=== PATIENT | female | born 1935 | race Caucasian/White ===

== ENCOUNTER → 2017-04-13 | Outpatient (CLI) | payer MEDICARE ==
[~2017-04-13] MED LIST: ACET500C PO; CALC1CAP8 PO; VITA-110 PO
[2017-04-13 19:10] LABS: MEAN CORPUSCULAR HEMOGLOBIN 31.1 pg (27.0-33.0); MEAN CORPUSCULAR HGB CONC 32.5 g/dl (32.0-36.5); MEAN CORPUSCULAR VOLUME 95.7 fl (80.0-96.0); RED CELL DISTRIBUTION WIDTH 12.9 % (11.5-14.5); WHITE BLOOD COUNT 9.8 K/mm3 (4.0-10.0)
[2017-04-13 19:23] LABS: ALBUMIN 3.7 GM/DL (3.2-5.2); ALBUMIN/GLOBULIN RATIO 1.28 (1.00-1.93); ALKALINE PHOSPHATASE 63 U/L (45-117); ALT/SGPT 15 U/L (12-78); ANION GAP 9 MEQ/L (8-16); AST/SGOT 15 U/L (15-37); BILIRUBIN,TOTAL 0.3 MG/DL (0.2-1.0); BLOOD UREA NITROGEN 20 MG/DL (7-18); CALCIUM LEVEL 9.1 MG/DL (8.8-10.2); CARBON DIOXIDE LEVEL 25 MEQ/L (21-32); CHLORIDE LEVEL 109 MEQ/L (98-107); CREATININE FOR GFR 0.71 MG/DL (0.55-1.02); GLOMERULAR FILTRATION RATE > 60.0 (>32); GLUCOSE, FASTING 81 MG/DL (83-110); POTASSIUM SERUM 4.5 MEQ/L (3.5-5.1); SODIUM LEVEL 143 MEQ/L (136-145); TOTAL PROTEIN 6.6 GM/DL (6.4-8.2)
== END ==
LOC: M WUC 15:59
PROVIDERS: ATTEND Internal Medicine
DX: M81.0 Age-related osteoporosis without current pathological fracture (principal); R63.6 Underweight

== ENCOUNTER → 2018-10-23 | Outpatient (CLI) | payer MEDICARE ==
--- NOTE | 2018-10-23 16:34 | REPMRS ---
Patient History The patient states she has not had a clinical breast exam in over a year. Patient is postmenopausal and had first child at age 33. No known family history of cancer. Benign excisional biopsy of the left breast, 1959. Digital Woman Screen Mammo: October 23, 2018 - Exam #: [id number] Bilateral CC and MLO view(s) were taken. Technologist: Eliana Curtis, Technologist Prior study comparison: 2016, bilateral digital mammo screening bilat, performed at [facility]. FINDINGS: The breast tissue is extremely dense which could obscure a lesion on mammography. There has been no change in the appearance of the mammogram from the prior studies. There is a moderate amount of residual fibroglandular tissue which is fairly symmetric. There is no interval development of dominant mass, architectural distortion, or clustered microcalcification typical of malignancy. There are scattered, small, benign calcifications of doubtful clinical significance. There are bilateral benign arterial calcifications noted. 3-D tomosynthesis shows no additional findings. The patient's Tyrer-Cuzick lifetime risk assessment score is 0.9 %. No significant changes when compared with prior studies. Assessment: BI-RADS/ACR category 2 mammogram. Benign Findings. Recommendation Routine screening mammogram in 1 year (for women over age 40). This mammogram was interpreted with the aid of an FDA-approved computer-aided dectection system. A. Negative x-ray reports should not delay biopsy if a dominant or clinically suspicious mass is present. B. Four to eight percent of cancers are not identified by mammography. C. Adenosis and dense breast may obscure an underlying neoplasm. Electronically Signed By: Александр Santamaria MD 10/23/18 [id number]
== END ==
LOC: M WHC 12:44
PROVIDERS: ATTEND Internal Medicine
DX: Z12.31 Encounter for screening mammogram for malignant neoplasm of breast (principal); Z78.0 Asymptomatic menopausal state; Z86.018 Personal history of other benign neoplasm; R92.1 Mammographic calcification found on diagnostic imaging of breast; J84.10 Pulmonary fibrosis, unspecified; R91.8 Other nonspecific abnormal finding of lung field; Z72.0 Tobacco use

== ENCOUNTER → 2018-10-23 | Outpatient (CLI) | payer MEDICARE ==
--- NOTE | 2018-10-23 12:21 | REP ---
Chest two views HISTORY: Tobacco use Comparison: 12/29/2013 The lungs are hyperinflated. An increase in interstitial markings is present in the lungs consistent with chronic interstitial fibrosis. Patchy density is present in the right lower lobe consistent with atelectasis or infiltrate. The heart is normal in size. The pulmonary vasculature is normal in appearance. The bony structure is intact. IMPRESSION: 1. Chronic interstitial fibrosis. 2. Right lower lobe atelectasis or infiltrate. Electronically Signed by José Miguel Abdalla MD 10/23/2018 12:12 P
== END ==
LOC: M WUC 11:31
PROVIDERS: ATTEND Internal Medicine
DX: J84.10 Pulmonary fibrosis, unspecified (principal); R91.8 Other nonspecific abnormal finding of lung field; Z72.0 Tobacco use

== ENCOUNTER → 2018-10-29 | Outpatient (REF) | payer MEDICARE ==
[2018-10-29 17:35] LABS: HEMATOCRIT 38.4 % (36.0-47.0); HEMOGLOBIN 12.1 g/dl (12.0-15.5); MEAN CORPUSCULAR HEMOGLOBIN 29.9 pg (27.0-33.0); MEAN CORPUSCULAR HGB CONC 31.5 g/dl (32.0-36.5); MEAN CORPUSCULAR VOLUME 94.8 fl (80.0-96.0); PLATELET COUNT, AUTOMATED 295 10^3/uL (150-450); RED BLOOD COUNT 4.05 10^6/uL (4.00-5.40)
[2018-10-29 17:45] LABS: ALBUMIN 3.7 GM/DL (3.2-5.2); ALT/SGPT 14 U/L (12-78); BILIRUBIN,TOTAL 0.4 MG/DL (0.2-1.0); BLOOD UREA NITROGEN 19 MG/DL (7-18); CALCIUM LEVEL 9.1 MG/DL (8.8-10.2); CARBON DIOXIDE LEVEL 27 MEQ/L (21-32); CHLORIDE LEVEL 108 MEQ/L (98-107); CHOLESTEROL LEVEL 179 MG/DL (<200); CHOLESTEROL RISK RATIO 3.729 (<5); CREATININE FOR GFR 0.75 MG/DL (0.55-1.30); GLOMERULAR FILTRATION RATE > 60.0 (>32); GLUCOSE, FASTING 83 MG/DL (70-100); HDL CHOLESTEROL 48 MG/DL (>40); LDL CHOLESTEROL 111 MG/DL (<100); NON-HDL-C 131 MG/DL; POTASSIUM SERUM 4.3 MEQ/L (3.5-5.1); SODIUM LEVEL 142 MEQ/L (136-145); TOTAL PROTEIN 6.5 GM/DL (6.4-8.2); TRIGLYCERIDES LEVEL 100 MG/DL (<150)
[2018-10-29 17:46] LABS: TOTAL 25(OH) VITAMIN D 11.3 NG/ML (30.0-100.0)
== END ==
LOC: M SFHCPLAZ 10:42
PROVIDERS: ATTEND Internal Medicine
DX: R63.6 Underweight (principal); M81.0 Age-related osteoporosis without current pathological fracture

== ENCOUNTER → 2019-10-16 | Outpatient (CLI) | payer MEDICARE ==
[2019-10-16 15:06] LABS: HEMOGLOBIN 12.8 g/dl (12.0-15.5); MEAN CORPUSCULAR HEMOGLOBIN 30.6 pg (27.0-33.0); MEAN CORPUSCULAR HGB CONC 31.2 g/dl (32.0-36.5); MEAN CORPUSCULAR VOLUME 98.1 fl (80.0-96.0); PLATELET COUNT, AUTOMATED 301 10^3/uL (150-450); RED BLOOD COUNT 4.18 10^6/uL (4.00-5.40); WHITE BLOOD COUNT 9.5 10^3/uL (4.0-10.0)
[2019-10-16 15:38] LABS: ALBUMIN 3.8 GM/DL (3.2-5.2); ALT/SGPT 13 U/L (12-78); BILIRUBIN,TOTAL 0.3 MG/DL (0.2-1.0); BLOOD UREA NITROGEN 17 MG/DL (7-18); CALCIUM LEVEL 9.2 MG/DL (8.8-10.2); CARBON DIOXIDE LEVEL 31 MEQ/L (21-32); CHLORIDE LEVEL 104 MEQ/L (98-107); CREATININE FOR GFR 0.69 MG/DL (0.55-1.30); GLOMERULAR FILTRATION RATE > 60.0 (>32); GLUCOSE, FASTING 79 MG/DL (70-100); POTASSIUM SERUM 4.7 MEQ/L (3.5-5.1); SODIUM LEVEL 140 MEQ/L (136-145); TOTAL PROTEIN 6.9 GM/DL (6.4-8.2)
== END ==
LOC: M PLALAB 11:56
PROVIDERS: ATTEND Internal Medicine
DX: R63.6 Underweight (principal); Z72.0 Tobacco use; Z79.899 Other long term (current) drug therapy
CPT/HCPCS: 36415; 80053; 84443; 85027; G0463

== ENCOUNTER → 2020-10-12 | Outpatient (REF) | payer MEDICARE ==
[2020-10-12 15:29] LABS: HEMATOCRIT 41.7 % (36.0-47.0); HEMOGLOBIN 12.8 g/dl (12.0-15.5); MEAN CORPUSCULAR HEMOGLOBIN 30.3 pg (27.0-33.0); MEAN CORPUSCULAR HGB CONC 30.7 g/dl (32.0-36.5); MEAN CORPUSCULAR VOLUME 98.8 fl (80.0-96.0); PLATELET COUNT, AUTOMATED 316 10^3/uL (150-450); RED BLOOD COUNT 4.22 10^6/uL (4.00-5.40)
[2020-10-12 16:01] LABS: ALT/SGPT 13 U/L (12-78); BILIRUBIN,TOTAL 0.4 MG/DL (0.2-1.0); BLOOD UREA NITROGEN 22 MG/DL (7-18); CALCIUM LEVEL 9.6 MG/DL (8.8-10.2); CARBON DIOXIDE LEVEL 31 MEQ/L (21-32); CHLORIDE LEVEL 105 MEQ/L (98-107); GLOMERULAR FILTRATION RATE > 60.0 (>32); GLUCOSE, FASTING 75 MG/DL (70-100); POTASSIUM SERUM 4.7 MEQ/L (3.5-5.1); SODIUM LEVEL 142 MEQ/L (136-145); TOTAL PROTEIN 7.2 GM/DL (6.4-8.2)
[2020-10-12 16:37] LABS: TOTAL 25(OH) VITAMIN D 21.5 NG/ML (30.0-100.0)
== END ==
LOC: M PLALAB 11:41
PROVIDERS: ATTEND Internal Medicine
DX: M81.0 Age-related osteoporosis without current pathological fracture (principal)

== ENCOUNTER 2021-06-30 16:31 | Observation (INO) | payer MEDICARE ==
[~2021-06-30] VITALS: Ht 157.5 cm; Wt 35.4 kg
--- OUTSIDE RECORDS SUMMARY | 2021-06-30 16:36 | CCD ---
Author Author [facility] Organization [facility] Address Unknown Phone Unavailable Support Name Relationship Address Phone RETIRED Next Of Kin Unknown RE Next Of Kin Unknown Unavailable SUZI [place] [address] Su[address] [facility] [address] [id number] [phone] Re-disclosure Warning The records that you are about to access may contain information from federally-assisted alcohol or drug abuse programs. If such information is present, then the following federally mandated warning applies: This information has been disclosed to you from records protected by federal confidentiality rules (42 CFR part 2). The federal rules prohibit you from making any further disclosure of this information unless further disclosure is expressly permitted by the written consent of the person to whom it pertains or as otherwise permitted by 42 CFR part 2. A general authorization for the release of medical or other information is NOT sufficient for this purpose. The Federal rules restrict any use of the information to criminally investigate or prosecute any alcohol or drug abuse patient.The records that you are about to access may contain highly sensitive health information, the redisclosure of which is protected by Article 27-F of the [facility] Public Health law. If you continue you may have access to information: Regarding HIV / AIDS; Provided by facilities licensed or operated by the [facility] Office of Mental Health; or Provided by the [facility] Office for People With Developmental Disabilities. If such information is present, then the following [facility] mandated warning applies: This information has been disclosed to you from confidential records which are protected by state law. State law prohibits you from making any further disclosure of this information without the specific written consent of the person to whom it pertains, or as otherwise permitted by law. Any unauthorized further disclosure in violation of state law may result in a fine or intermediate sentence or both. A general authorization for the release of medical or other information is NOT sufficient authorization for further disc losure. Encounters Encounter Providers Location Date Indications Data Source(s ) Out[place] [address] [facility] [address] 10/13/2020 12:00:00 AM EST eCW1 ([facility]) Immunizations Vaccine Date Status Description Data Source(s) COVID-19 VACCINE Pfizer 10/26/2020 12:00:00 AM EST completed NYSIIS Vaccine Series Complete: YESThis Data wa s Submitted to [facility] Via [employer]. COVID-19 dose #1 (given elsewhere) Unspecified 10/05/2020 02 :05:00 PM EST completed eCW1 ([facility]) COVID-19 VACCINE Pfizer 10/05/2020 12:00:00 AM EST completed NYSIIS Vaccine Series Complete: NOThis Data was Submitted to [facility] Via [employer]. IIV3. This is one of two codes replacing CVX 15, which is being retired. 06/05/2020 10:18:00 AM EDT completed eCW1 ([facility]) Medications No Information Insurance Providers Payer name Policy type / Coverage type Policy ID Covered libertarian ID Covered libertarian's relationship to bustos Policy Bustos Plan Information MEDICARE [id number] SP [id number] A [facility] HE[facility] C[facility] OPTIONS [id number] SP [id number] ANS-Medicare Part B [id number] ANSI-Commercial [id number] ANSI-Medicare Part B [id number] ANSI-Commercial [id number] ANSI-Commercial [id number] ANSI-Medicare Part B [id number] MEDICARE [id number] SP [id number] A MEDICARE C [id number] S [id number] A AARP O [id number] S [id number] 311 [employer]ARP HE[employer] CARE OPTIONS [id number] SP [id number] [employer] [place] [id number] SP [id number] MEDICARE COMPLETE-UHC P UNAVAILABLE [id number] S UNAVAILABLE MEDICARE - [place] MCR [id number] S [id number] MEDICARE [id number] SP [id number] A Problems, Conditions, and Diagnoses No Information Surgeries/Procedures No Information Results No Information Social History Code Duration Value Status Description Data Source(s ) Smoking 10/13/2020 12:00:00 AM EST Current Smoker completed Curre nt Smoker eCW1 ([facility]) Vital Signs ID Date Data Source UNK Name Value Range Interpretation Code Description Data Source(s) Body weight 79.6 [lb_av] 79.6 [lb_av] eCW1 ([facility]) Body height 62 [in_i] 62 [in_i] eCW1 ([facility]) Body mass index (BMI) [Ratio] 14.56 kg/m2 14.56 kg/m2 eCW1 ([facility]) Heart rate 100 /min 100 /min eCW1 ([facility]) Respiratory rate 18 /min 18 /min eCW1 ([facility]) Body temperature 97.9 [degF] 97.9 [degF] eCW1 ( [facility]) Systolic blood pressure 122 mm[Hg] 122 mm[Hg] e CW1 ([facility]) Diastolic blood pressure 58 mm[Hg] 58 mm[Hg] eCW1 ([facility])
[2021-06-30 17:29] LABS: BASO % 0.3 % (0.0-1.0); EOS % 0.5 % (0.0-3.0); HEMOGLOBIN 11.5 g/dl (12.0-15.5); LYMPH # 0.6 10^3/uL (1.5-5.0); LYMPH % 8.1 % (24.0-44.0); MEAN CORPUSCULAR HEMOGLOBIN 30.4 pg (27.0-33.0); MEAN CORPUSCULAR HGB CONC 31.1 g/dl (32.0-36.5); MEAN CORPUSCULAR VOLUME 97.9 fl (80.0-96.0); MONO # 0.5 10^3/uL (0.0-0.8); MONO % 6.6 % (2.0-8.0); NEUTROPHILS # 6.2 10^3/uL (1.5-8.5); NEUTROPHILS % 83.8 % (36.0-66.0); PLATELET COUNT, AUTOMATED 238 10^3/uL (150-450); RED BLOOD COUNT 3.78 10^6/uL (4.00-5.40); WHITE BLOOD COUNT 7.4 10^3/uL (4.0-10.0)
[2021-06-30] MEDS ORDERED: NS 500 ML IV ONE (17:55)
--- OUTSIDE RECORDS SUMMARY | 2021-06-30 18:19 | CCD ---
Author Author [facility] Organization [facility] Address Unknown Phone Unavailable Support Name Relationship Address Phone RETIRED Next Of Kin Unknown RE Next Of Kin Unknown Unavailable [place] [address] Suzi Carter [facility] [address] [id number] [phone] Re-disclosure Warning The records that you are [...] is protected by Article 27-F of the [facility] Public Health law. If you continue you may have access to information: Regarding HIV / AIDS; Provided by facilities licensed or operated by the [facility] Office of Mental Health; or Provided by the [facility] Office for People With Developmental Disabilities. If such information is present, then the following [facility] mandated warning applies: This information has been [...] law may result in a fine or long term sentence or both. A general authorization for the release of medical or other information is NOT sufficient authorization for further disc losure. Encounters Encounter Providers Location Date Indications Data Source(s ) Out[place] [address] [facility] [address] 10/13/2020 12:00:00 AM EST eCW1 ([facility]) Immunizations Vaccine Date Status Description Data Source(s) COVID-19 VACCINE Pfizer 10/26/2020 12:00:00 AM EST completed NYSIIS Vaccine Series Complete: YESThis Data wa s Submitted to [facility] Via [employer]. COVID-19 dose #1 (given elsewhere) Unspecified 10/05/2020 02 :05:00 PM EST completed eCW1 ([facility]) COVID-19 VACCINE Pfizer 10/05/2020 12:00:00 AM EST completed NYSIIS Vaccine Series Complete: NOThis Data was Submitted to [facility] Via [employer]. IIV3. This is one of two codes replacing CVX 15, which is being retired. 06/05/2020 10:18:00 AM EDT completed eCW1 ([facility]) Medications No Information Insurance Providers Payer name Policy type / Coverage type Policy ID Covered libertarian ID Covered libertarian's relationship to bustos Policy Bustos Plan Information MEDICARE [id number] SP [id number] A [facility] HEALTH CARE OPTIONS [id number] SP [id number] ANS-Medicare Part B [id number] ANSI-Commercial [id number] ANSI-Medicare Part B [id number] ANSI-Commercial [id number] ANSI-Commercial [id number] ANSI-Medicare Part B [id number] MEDICARE [id number] SP [id number] A MEDICARE C [id number] S [id number] A AARP O [id number] S [id number] 311 AARP HE[employer] CARE OPTIONS [id number] SP [id number] [employer] [place] [id number] SP [id number] MEDICARE COMPLETE-UHC P UNAVAILABLE [id number] S UNAVAILABLE MEDICARE - [place] MCR [id number] S [id number] MEDICARE [id number] SP [id number] A Problems, Conditions, and Diagnoses No Information Surgeries/Procedures No Information Results No Information Social History Code Duration Value Status Description Data Source(s ) Smoking 10/13/2020 12:00:00 AM EST Current Smoker completed Curre nt Smoker eCW1 ([facility]) Vital Signs ID Date Data Source UNK Name Value Range Interpretation Code Description Data Source(s) Body weight 79.6 [lb_av] 79.6 [lb_av] eCW1 ([facility]) Body height 62 [in_i] 62 [in_i] eCW1 ([facility]) Body mass index (BMI) [Ratio] 14.56 kg/m2 14.56 kg/m2 eCW1 ([facility]) Heart rate 100 /min 100 /min eCW1 ([facility]) Respiratory rate 18 /min 18 /min eCW1 ([facility]) Body temperature 97.9 [degF] 97.9 [degF] eCW1 ( [facility]) Systolic blood pressure 122 mm[Hg] 122 mm[Hg] e CW1 ([facility]) Diastolic blood pressure 58 mm[Hg] 58 mm[Hg] eCW1 ([facility])
[2021-06-30 18:20] LABS: BLOOD UREA NITROGEN 23 MG/DL (7-18); CALCIUM LEVEL 8.6 MG/DL (8.8-10.2); CARBON DIOXIDE LEVEL 24 MEQ/L (21-32); CHLORIDE LEVEL 114 MEQ/L (98-107); CK-MB VALUE MASS 1.5 NG/ML (<3.6); CPK CREATINE PHOSPHOKINASE 33 U/L (26-192); CREATININE FOR GFR 1.01 MG/DL (0.55-1.30); FREE T4 1.01 NG/DL (0.76-1.46); GLOMERULAR FILTRATION RATE 55.3 (>32); GLUCOSE, FASTING 121 MG/DL (70-100); MAGNESIUM LEVEL 1.9 MG/DL (1.8-2.4); MB/CK RELATIVE INDEX 4.55 (< OR =4); POTASSIUM SERUM 4.2 MEQ/L (3.5-5.1); SODIUM LEVEL 142 MEQ/L (136-145); TROPONIN I < 0.02 NG/ML (< 0.10)
[2021-06-30] MEDS ORDERED: HOME MED LIST COMPLETE! XX SCH (18:55)
[2021-06-30 19:06] LABS: RSV AMPLIFICATION POSITIVE (NEGATIVE)
--- NOTE | 2021-06-30 19:06 | REP ---
INDICATION: syncope. COMPARISON: 11/15/2018. TECHNIQUE: Single portable AP view of the chest was performed. FINDINGS: Diffuse fibrotic changes are stable. There is a possible 2 cm nodule medially in the left lung base. No definite superimposed acute infiltrate is seen. There is mild biapical pleural thickening which is unchanged. The heart is not enlarged. There is some calcification of the thoracic aorta. The mediastinal silhouette is unchanged. IMPRESSION: No acute infiltrate. Chronic fibrosis. Possible 2 cm nodule medial left lung base. <Electronically signed by Catarino Stevens > 06/30/21 [id number]
--- OUTSIDE RECORDS SUMMARY | 2021-06-30 19:55 | CCD ---
Author Author [facility] Organization [facility] Address Unknown Phone Unavailable Support Name Relationship Address Phone DESTINEY PAUL Next Of Kin - -, - - RETIRED Next Of Kin Unknown RE Next Of Kin Unknown Unavailable SUZI CARTER Next Of Kin [address] [place] [id number] Suzi Carter [id number] [id number] [phone] Re-disclosure Warning The records that you are [...] is protected by Article 27-F of the [facility] Public Health law. If you continue you may have access to information: Regarding HIV / AIDS; Provided by facilities licensed or operated by the [facility] Office of Mental Health; or Provided by the [facility] Office for People With Developmental Disabilities. If such information is present, then the following [facility] mandated warning applies: This information has been [...] law may result in a fine or half-way sentence or both. A general authorization for the release of medical or other information is NOT sufficient authorization for further disc losure. Encounters Encounter Providers Location Date Indications Data Source(s ) Out[place] [address] [facility] [address] 10/13/2020 12:00:00 AM EST eCW1 ([facility]) Immunizations Vaccine Date Status Description Data Source(s) COVID-19 VACCINE Pfizer 10/26/2020 12:00:00 AM EST completed NYSIIS Vaccine Series Complete: YESThis Data wa s Submitted to [facility] Via [employer]. COVID-19 dose #1 (given elsewhere) Unspecified 10/05/2020 02 :05:00 PM EST completed eCW1 ([facility]) COVID-19 VACCINE Pfizer 10/05/2020 12:00:00 AM EST completed NYSIIS Vaccine Series Complete: NOThis Data was Submitted to [facility] Via [employer]. IIV3. This is one of two codes replacing CVX 15, which is being retired. 06/05/2020 10:18:00 AM EDT completed eCW1 ([facility]) Medications No Information Insurance Providers Payer name Policy type / Coverage type Policy ID Covered republican ID Covered republican's relationship to bustos Policy Bustos Plan Information MEDICARE [id number] SP [id number] A [facility] C[facility] OPTIONS [id number] SP [id number] ANSI-Medicare Part B [id number] ANSI-Commercial [id number] ANSI-Medicare Part B [id number] ANSI-Commercial [id number] ANSI-Commercial [id number] ANS-Medicare Part B [id number] MEDICARE [id number] SP [id number] A MEDICARE C [id number] S [id number] A AARP O [id number] S [id number] 311 AARP HE[employer] CARE OPTIONS [id number] SP [id number] [facility] [id number] SP [id number] MEDICARE COMPLETE-UHC P UNAVAILABLE [id number] S UNAVAILABLE MEDICARE - [place] MCR [id number] S [id number] MEDICARE [id number] SP [id number] A Problems, Conditions, and Diagnoses No Information Surgeries/Procedures No Information Results No Information Social History Code Duration Value Status Description Data Source(s ) Smoking 10/13/2020 12:00:00 AM EST Current Smoker completed Curre nt Smoker eCW1 ([facility]) Vital Signs ID Date Data Source UNK Name Value Range Interpretation Code Description Data Source(s) Body weight 79.6 [lb_av] 79.6 [lb_av] eCW1 ([facility]) Body height 62 [in_i] 62 [in_i] eCW1 ([facility]) Body mass index (BMI) [Ratio] 14.56 kg/m2 14.56 kg/m2 eCW1 ([facility]) Heart rate 100 /min 100 /min eCW1 ([facility]) Respiratory rate 18 /min 18 /min eCW1 [facility] Body temperature 97.9 [degF] 97.9 [degF] eCW1 ( [facility]) Systolic blood pressure 122 mm[Hg] 122 mm[Hg] e CW1 ([facility]) Diastolic blood pressure 58 mm[Hg] 58 mm[Hg] eCW1 ([facility])
--- NOTE | 2021-06-30 20:11 | REPVR ---
PROCEDURE INFORMATION: Exam: CT Head Without Contrast Exam date and time: 06/30/2021 8:03 PM Age: 85 years old Clinical indication: Syncope and collapse; Additional info: Syncope w high blood pressure R/O CVA TECHNIQUE: Imaging protocol: Computed tomography of the head without contrast. Radiation optimization: All CT scans at this facility use at least one of these dose optimization techniques: automated exposure control; mA and/or kV adjustment per patient size (includes targeted exams where dose is matched to clinical indication); or iterative reconstruction. Other technique: STROKE PROTOCOL was implemented. COMPARISON: No relevant prior studies available. FINDINGS: Brain: No intracranial mass, mass effect or midline shift. No acute intracranial hemorrhage. No CT evidence of acute cortical infarct. Mild decreased attenuation in periventricular/centrum semiovale white matter. Ventricles, cisterns, and sulci are normal in size for age. Cavum septi pellucidi et vergae incidental anatomic variant is present. Paranasal sinuses: Imaged paranasal sinuses are normally aerated. Mastoid air cells: Mastoid air cells and middle ear structures are normally aerated. Orbital cavity: Imaged orbits are unremarkable. Bones/joints: No calvarial fracture or destructive process. Soft tissues: No focal extracranial soft tissue swelling. IMPRESSION: No acute or concerning focal intracranial abnormality. ASSESSMENT: ASPECTS ([place] Stroke Program Early CT Score) is 10. Electronically signed by: Leonel Pleitez On 06/30/2021 20:10:53 PM
[2021-06-30] MEDS ORDERED: MAALOX 30 ML SUSP *UDC PO PRN (20:45)
[2021-06-30] MEDS ORDERED: ACETAMINOPHEN TAB 650MG DOSE (2X325MG) PO PRN (20:45)
[2021-06-30] MEDS ORDERED: MOM 30ML SUSPENSION UDC PO PRN (20:45)
--- NOTE | 2021-06-30 20:45 | HPEPDOC ---
General Date of Admission Jun 30, 2021 at 16:32 Date of Service: Jun 30, 2021 Attending Physician: CATE KING MD Chief Complaint Syncope. History of Present Illness History of present illness: Mrs. Vega is an 85 year old female who presented to the emergency department after a syncopal episode yesterday morning while shopping at [employer] with her daughter Nasra. She states that she started to feel very tired while walking around the store and told her daughter that she did not feel well. She remembers feeling dizzy soon after and attempted to lean against a nearby wall. The next thing she remembers is waking up on the floor with a group of people around her. She is unsure of exactly how long she had lost consciousness but does believe it was less than 5 minutes in duration. She denies tongue biting or loss of bowel/bladder. She denies anyone tell her that a ppeared to be "seizing". She had a similar episode like this 10 years prior that was due to dehydration. She had soup, half a sandwich, and a few sips of coffee that morning. She usually has a glass of orange juice and toast with jam for breakfast. In the ED she was given a 500cc bolus and found to have RSV. Review of systems: General: denies fevers, chills, night sweats. admits to being thin and not eating much for most of her adult life HEENT: denies changes in vision or hearing, difficulty swallowing, or swollen glands Cardiovascular: denies chest pain or palpitations Pulmonary: denies shortness of breath, pain with inspiration, cough, or wheezing Abdomen: denies nausea, vomiting, diarrhea, blood in stool or urine. Extremities: denies swelling, cyanosis, new muscle weakness Past medical / surgical history: Vasovagal syncope Underweight Osteoporosis Hysterectomy Appendectomy Tonsillectomy Bilateral cataract surgery Social history: Patient smokes 3 cigarettes per day, smoking since age 29 Patient denies ETOH or illicit drug use. Patient lives alone in [place] Family history: reviewed and noncontributory Allergies: Penicillin-hives / Sulfa drugs-hives Physical examination: General: A frail elderly female sitting in bed in no acute distress. She converses well and is oriented to her surroundings HEENT: PERRLA, EOMI, mucous membranes appear mildly dry, no lymphadenopathy. Hearing aids noted bilaterally Cardiovascular: regular rate of 78 with occasional premature atrial contractions, heart sounds are distant and no audible murmur is appreciated Pulmonary: equal air intake bilaterally, no rhonchi or wheezes noted. Faint crackles heard in lung bases. Abdomen: soft, scaphoid, nontender to palpation, positive bowel sounds Extremities: no edema or cyanosis noted. Pulses are 2+ throughout, capillary refill<2 seconds Neurology: CN 2-12 are intact. Strength is 4/5 throughout, patient has full sensation. Psych: alert and oriented x 4 Imaging: Chest x ray: 06/30/21: IMPRESSION: No acute infiltrate. Chronic fibrosis. Possible 2 cm nodule medial left lung base. Head CT: 06/30/21: IMPRESSION: No acute or concerning focal intracranial abnormality. Assessment: Mrs. Vega is an 85 year old female with past medical history of vasovagal syncope, low BMI (14), osteoporosis and tobacco use disorder who presented to the emergency department after a syncopal episode yesterday morning while shopping at [employer]. She tested positive for RSV and was admitted for workup of syncope. Plan: Syncopal episode -yesterday morning while walking around [employer] -patient has history of vasovagal syncope -Orthostatic vitals were negative -BUN 23, patient given 500ml bolus in ED. Started on maintenance fluids 80ml/hr x 1 bag -unable to appreciate a murmur on PE, last echocardiogram 2013 -Blood glucose 121 -RBR 3.7, Hgb 11.5 -Iron panel, Magnesium, B12, folate, TSH, T4 levels pending -head CT negative Respiratory syncytial virus -afebrile -tested positive in ED -started 1 bag NS rate of 80ml/hr for supportive care -patient is not symptomatic -continue supportive treatment Underweight -BMI 14.3 -patient states she has always weighed less than 100lbs even in her youth. Osteoporosis -last DEXA 2014 Tobacco use disorder -patient smokes 3 cigarettes per day -ordered smoking cessation counseling -Chest x-ray: Possible 2 cm nodule seen on medial left lung base. Patient will need outpatient follow up. Severe Malnutrition / Sarcopenia BMI 14.3 DVT prophylaxis: -continue heparin Disposition: home after at least 2 midnight's stay Home Medications Scheduled Cholecalciferol (Vitamin D) 400 Unit Cap, 1 CAP PO DAILY, (Reported) Allergies Coded Allergies: Penicillins (Unverified Allergy, Unknown, 06/30/21) Sulfa (Sulfonamide Antibiotics) (Unverified Allergy, Unknown, 06/30/21) A-FIB/CHADSVASC A-FIB History Current/History of A-Fib/PAF?: No Current PO Anticoag Therapy: No Vital Signs Vital Signs Date Time Temp Pulse Resp B/P (MAP) Pulse Ox O2 Delivery O2 Flow Rate FiO2 06/30/21 18:30 79 179/76 (110) 96 Room Air 06/30/21 16:53 98.0 16 Laboratory Data Labs 24H Laboratory Tests 2 06/30/21 16:50: Anion Gap 4L, Glomerular Filtration Rate 55.3, Calcium Level 8.6L, Magnesium Level 1.9, Total Creatine Kinase 33, Creatine Kinase MB 1.5, Creatine Kinase MB Relative Index 4.55H, Troponin I < 0.02, Thyroid Stimulating Hormone (TSH) 1.190, Free Thyroxine 1.01 06/30/21 16:51: Immature Granulocyte % (Auto) 0.7, Neutrophils (%) (Auto) 83.8H, Lymphocytes (%) (Auto) 8.1L, Monocytes (%) (Auto) 6.6, Eosinophils (%) (Auto) 0.5, Basophils (%) (Auto) 0.3, Neutrophils # (Auto) 6.2, Lymphocytes # (Auto) 0.6L, Monocytes # (Auto) 0.5, Eosinophils # (Auto) 0.0, Basophils # (Auto) 0.0, Nucleated Red Blood Cells % (auto) 0.0 06/30/21 17:44: Coronavirus (COVID-19)(PCR) NEGATIVE, Influenza Type A (RT-PCR) NEGATIVE, Influenza Type B (RT-PCR) NEGATIVE, Respiratory Syncytial Virus (PCR) POSITIVE CBC/BMP Laboratory Tests 06/30/21 16:50 06/30/21 16:51 Plan / VTE VTE Prophylaxis Ordered?: Yes Attending Note Attending Note Time of service 905pm is an 85 yr old F w a hx of diverticulitis, osteoporosis and remote hx of syncope 2/2 dehydration who had a syncopal episode today while shopping. She denies having any overt prodromal symptoms, denies eating less than usual, and denies having n/v/d. Her PE was remarkable for a slim build. She will be admitted for: #Syncope possibly due to TIA i/s/o accelerated HTN #HTN Urgency #Sarcopenia #Macrocytic anemia Rest per H&P VEL SANCHEZ DO Jun 30, 2021 20:45 CATE KING MD Jun 30, 2021 23:23
[2021-06-30] MEDS ORDERED: amLODIPine 5 MG TAB PO SCH (21:00)
[2021-06-30] MEDS: DOCUSATE SODIUM 100MG CAPSULE PO SCH ×2 (21:35→21:40)
[2021-06-30] MEDS: HEPARIN SOD (PORCINE) 5000UNITS/ML 1ML VIAL/SYRINGE SC SCH (21:37)
[2021-06-30 21:48] LABS: HEMATOCRIT 35.9 % (36.0-47.0); HEMOGLOBIN 11.3 g/dl (12.0-15.5); MEAN CORPUSCULAR HEMOGLOBIN 30.9 pg (27.0-33.0); MEAN CORPUSCULAR HGB CONC 31.5 g/dl (32.0-36.5); MEAN CORPUSCULAR VOLUME 98.1 fl (80.0-96.0); PLATELET COUNT, AUTOMATED 238 10^3/uL (150-450); RED BLOOD COUNT 3.66 10^6/uL (4.00-5.40); WHITE BLOOD COUNT 6.1 10^3/uL (4.0-10.0)
[2021-06-30 23:50] LABS: FERRITIN 162 NG/ML (8-252); IRON (FE) 48 UG/DL (50-170); PERCENT SATURATION 18.8 % (13.2-45.0); TOTAL IRON BINDING CAPACITY 255 UG/DL (250-450)
[2021-07-01] VITALS: BP 156/71
[2021-07-01] MEDS ORDERED: NS 1,000 ML IV SCH (02:15)
[2021-07-01 05:51] LABS: HEMATOCRIT 35.1 % (36.0-47.0); HEMOGLOBIN 10.9 g/dl (12.0-15.5); MEAN CORPUSCULAR HEMOGLOBIN 30.4 pg (27.0-33.0); MEAN CORPUSCULAR HGB CONC 31.1 g/dl (32.0-36.5); PLATELET COUNT, AUTOMATED 222 10^3/uL (150-450); RED BLOOD COUNT 3.58 10^6/uL (4.00-5.40); WHITE BLOOD COUNT 4.8 10^3/uL (4.0-10.0)
[2021-07-01 06:25] LABS: BLOOD UREA NITROGEN 17 MG/DL (7-18); CALCIUM LEVEL 8.7 MG/DL (8.8-10.2); CARBON DIOXIDE LEVEL 27 MEQ/L (21-32); CHLORIDE LEVEL 115 MEQ/L (98-107); CREATININE FOR GFR 0.76 MG/DL (0.55-1.30); GLOMERULAR FILTRATION RATE > 60.0 (>32); GLUCOSE, FASTING 80 MG/DL (70-100); POTASSIUM SERUM 4.4 MEQ/L (3.5-5.1); PREALBUMIN 15.3 MG/DL (20.0-40.0); SODIUM LEVEL 143 MEQ/L (136-145)
[2021-07-01 08:00] VITALS: BP 146/68
[2021-07-01] MEDS ORDERED: FLUBLOK(EGG FREE)(QUAD)INFLUENZA VACC 0.5ML SYRINGE 18YRS & OLDER IM ONE (09:00)
[2021-07-01] MEDS: DOCUSATE SODIUM 100MG CAPSULE PO SCH (09:00)
[2021-07-01] MEDS ORDERED: CALCIUM/VITAMIN D 500 MG TAB PO SCH (09:00)
[2021-07-01 09:18] VITALS: BP 141/64
[2021-07-01 09:19] VITALS: BP 142/54
[2021-07-01 09:21] VITALS: BP 152/67
[2021-07-01] MEDS: HEPARIN SOD (PORCINE) 5000UNITS/ML 1ML VIAL/SYRINGE SC SCH (09:29)
[2021-07-01 09:35] LABS: FOLATE 18.1 NG/ML (>5.4); VITAMIN B12 LEVEL 200 PG/ML (247-911)
--- NOTE | 2021-07-01 19:00 | DS.PDOC ---
Discharge Summary General Date of Admission Jun 30, 2021 at 16:32 Date of Discharge 07/01/2021 Primary Care Physician: Aubrey Yanez Attending Physician: CADY SANCHEZ DO Discharge Summary PROCEDURES PERFORMED DURING STAY: None. ADMITTING DIAGNOSES: 1. Syncopal episode. 2. RSV 3. Underweight 4. Osteoporosis 5. Tobacco use disorder DISCHARGE DIAGNOSES: 1. Syncopal episode. 2. RSV 3. Underweight 4. Osteoporosis 5. Tobacco use disorder COMPLICATIONS/CHIEF COMPLAINT: Syncope. HISTORY OF PRESENT ILLNESS: Patient is an 85-year-old female who stated that she was walking around [employer] with her daughter when she had a syncopal episode. Patient states that she was starting to feel very tired while walking around the store and told her daughter that she needed to sit down. Patient remembers feeling dizzy and soon after she attempted to lean against a nearby wall. The next thing she remembers is waking up on the floor with a group reveal around her. She is unsure of exactly how long she lost consciousness but is not believe it was very long. She denies tongue biting or loss of bowel or bladder continence. She denies anyone telling her that she was seizing. Patient had a similar episode to this 10 years prior to dehydration. Patient had soup, half a sandwich and a few sips of coffee this morning. She usually has a glass of orange juice and toast with jam for breakfast. Patient had an elevated BUN pointing to dehydration in the emergency department. HOSPITAL COURSE: Patient did well overnight after receiving 500 cc bolus of fluids. Patient was diagnosed with RSV on routine respiratory panel prior to coming into the hospital. Patient states that she been having a cold for the past few days and has not been eating and drinking her normal amounts. After fluid resuscitation, patient was feeling much better. Patient was able to walk to the bathroom without any difficulty. A stool occult blood test that was ordered was negative. Patient's hemoglobin was stable. Patient had negative orthostatic vitals. Patient was feeling better to the point where she was ready for discharge. Patient was discharged on 07/01/2021. DISCHARGE MEDICATIONS: Please see below. ALLERGIES: Please see below. PHYSICAL EXAMINATION ON DISCHARGE: VITAL SIGNS: Please see below. General: Alert and oriented female patient who was sitting up in bed when I walked in. Patient did not appear to be in any acute distress. HEENT: Normocephalic, atraumatic, moist mucous membranes. Neck: No lymphadenopathy or thyromegaly Cardiac: Regular rate and rhythm, no murmurs, normal S1, normal S2 Pulm: Clear to auscultation bilaterally. No wheezes, rhonchi, rales Abd: Nondistended, nontender to palpation, normal bowel sounds Ext: No edema bilateral lower extremities LABORATORY DATA: Please see below. IMAGING: Chest x-ray performed on 06/30/2021 was reported to show no acute infiltrate. Chronic fibrosis. Possible 2 cm nodule medial left lung base. CT the head performed without contrast on 06/30/2021 was reported to show no acute or concerning focal intracranial abnormality. PROGNOSIS: Good ACTIVITY: As tolerated. DIET: Regular DISCHARGE PLAN: Discharge home DISPOSITION: 01 Home, Self-Care. DISCHARGE INSTRUCTIONS: 1. Follow-up with primary care provider in 3 to 5 days discharge. 2. Follow supportive care measures such as Tylenol and fluid intake for RSV 3. Add Ensure to diet due to protein calorie malnutrition 4. Return to the emergency department if symptoms worsen ITEMS TO FOLLOWUP ON ON OUTPATIENT: 1. None. DISCHARGE CONDITION: Stable. TIME SPENT ON DISCHARGE: 25 minutes. Vital Signs/I&Os Vital Signs Date Time Temp Pulse Resp B/P (MAP) Pulse Ox O2 Delivery O2 Flow Rate FiO2 07/01/21 09:21 90 152/67 (95) 07/01/21 08:00 98.1 17 94 Room Air I&O- Last 24 Hours up to 6 AM 07/01/21 06:00 Intake Total 500 ml Balance 500 ml Laboratory Data Labs 24H Laboratory Tests 2 06/30/21 21:29: Nucleated Red Blood Cells % (auto) 0.0 07/01/21 05:01: Nucleated Red Blood Cells % (auto) 0.0, Anion Gap 1L, Glomerular Filtration Rate > 60.0, Calcium Level 8.7L, Prealbumin 15.3L CBC/BMP Laboratory Tests 06/30/21 21:29 07/01/21 05:01 Microbiology Microbiology 07/01/21 Stool Occult Blood (BRITTNEY) - Final, Complete Discharge Medications Scheduled Cholecalciferol (Vitamin D) 400 Unit Cap, 1 CAP PO DAILY, (Reported) Allergies Coded Allergies: Penicillins (Unverified Allergy, Unknown, 06/30/21) Sulfa (Sulfonamide Antibiotics) (Unverified Allergy, Unknown, 06/30/21) CADY SANCHEZ DO Jul 01, 2021 19:00
--- NOTE | 2021-07-01 20:10 | ECGEPIP ---
[facility] - ED Test Date: 2021-06-30 Pat Name: PROSPER ASKEW Department: Room: - Gender: Female Director Mobile: YEISON : 1935 Requested By: Charley Koo Order Number: [id number] Reading MD: Charley Koo Measurements Intervals [place] Rate: 78 P: 76 GA: 126 QRS: 63 QRSD: 80 T: 69 QT: 382 QTc: 435 Interpretive Statements Sinus rhythm with premature atrial complexes No prior Electronically Signed on 07-01-2021 20:09:58 EDT by Charley Koo
--- NOTE | 2021-07-05 15:02 | ED PDOC ---
Post-Departure Follow-Up radiology report faxed to Charley Escobar MD Jul 05, 2021 15:02
== END 2021-07-01 13:13 | disposition home or self-care (01) ==
LOC: M ED 16:31 → M ED INP 16:32 → ENRESERVDT 21:50 → ENRESERVTM 21:50 → M PCU 22:41
PROVIDERS: ADMIT Internal Medicine; ATTEND Family Medicine
DX: R55 Syncope and collapse (principal); B97.4 Respiratory syncytial virus as the cause of diseases classified elsewhere; R63.6 Underweight; M81.0 Age-related osteoporosis without current pathological fracture; Z79.899 Other long term (current) drug therapy
CPT/HCPCS: 36415; 70450; 71045; 80048; 82270; 82550; 82553; 82607; 82728; 82746; 83550; 83735; 84134; 84439; 84443; 84484; 85025; 85027; 87631; 93005; 93041; 94760; 96360; 96372; 99285; G0378; J1644

== ENCOUNTER → 2021-07-22 | Outpatient (CLI) | payer MEDICARE ==
--- NOTE | 2021-07-22 14:06 | REP ---
INDICATION: PULMONARY NODULE COMPARISON: Multiple the latest 11/07/2007 TECHNIQUE: Standard helical technique without contrast FINDINGS: Right hilar densities appear to have developed since the last exam, however, without intravenous contrast a comparison cannot be accurately made. Right hilar adenopathy cannot be ruled out. There is no evidence of mediastinal adenopathy. There is no gross left hilar adenopathy. Small lymph nodes could be obscured. There are no pleural or pericardial effusions. There is no significant change in appearance of the imaged upper abdomen. There is no significant change in appearance of the imaged osseous structures. Evaluation of the lung alexis shows rather extensive appearing pleuroparenchymal scarring which has increased from the prior exam. There is calcific pleural plaquing in the upper lobe regions this has also increased. There is marked lung field hyperexpansion. There are new reticulonodular densities scattered throughout the lung alexis bilaterally particularly in the inferior right middle lobe and lingula and in the lower lobes with a new rather extensive left lower lobe consolidation and a new somewhat less extensive pleural based right lower lobe consolidation. Respiratory motion artifact is seen throughout the exam. There is evidence of soft tissue density throughout multiple right lower lobe bronchioles and 2 somewhat a lesser degree seen in the same fashion on the left. IMPRESSION: 1. Possible adenopathy as described above. 2. New extensive lung parenchymal findings as described above likely the result of acute disease superimposed upon chronic changes and particularly in the left lower lobe. 3. There is bronchiolar obstruction as described above. This should be correlated clinically with appropriate follow-up. 4. Lung field hyperexpansion and bronchiectasis. 5. Other findings as described above. Pulmonary consultation is suggested <Electronically signed by Lucas Vargas > 07/22/21 [id number]
== END ==
LOC: M PLAIMG 13:07
PROVIDERS: ATTEND Nurse Practitioner Adult Health
DX: R91.1 Solitary pulmonary nodule (principal)

== ENCOUNTER → 2021-08-18 | Outpatient (REF) | payer MEDICARE | LOC: M LAB REF 15:41 | PROVIDERS: ATTEND Internal Medicine Pulmonary Disease | DX: R91.8 Other nonspecific abnormal finding of lung field (principal) ==

== ENCOUNTER → 2021-09-02 | Outpatient (CLI) | payer MEDICARE ==
--- NOTE | 2021-09-02 14:44 | REP ---
INDICATION: ABN FINDING OF LUNG COMPARISON: Multiple latest 07/22/2021 also without contrast TECHNIQUE: Standard helical technique without contrast FINDINGS: There is no significant change in appearance of the mediastinum or pulmonary dionisio. A small pericardial effusion has developed since the last exam. There are no pleural effusions. There is no change in the imaged osseous structures. The imaged upper abdomen is more inclusive on today's exam. There is possible intrahepatic ductal dilatation. Evaluation of the lung alexis shows lung field hyperexpansion status quo. The advanced opacities seen previously in the left lower lobe have significantly improved. The heavy patchy opacity in the right lower lobe has significantly improved. There is heavy biapical pleuroparenchymal scarring status quo. Calcific pleural plaquing is identified status quo. The diffuse reticulonodular densities seen bilaterally also have improved somewhat. The intra bronchiolar densities seen previously have improved particularly in the left lower lobe. IMPRESSION: 1. Although there is significant chronic lung field changes as described above there has been significant improvement compared to the prior exam. There is no revised Fleischner society criteria on the recommendation for follow-up of such chronic lung field changes. Follow-up should be based on clinical assessment. 2. There is a new small pericardial effusion. 3. Possible intrahepatic ductal dilatation as described above. Follow-up is recommended. <Electronically signed by Lucas Vargas > 09/02/21 [id number]
== END ==
LOC: M RAD 14:03
PROVIDERS: ATTEND Internal Medicine Pulmonary Disease
DX: R91.8 Other nonspecific abnormal finding of lung field (principal); I31.3 Pericardial effusion (noninflammatory)

== ENCOUNTER → 2022-01-10 | Outpatient (CLI) | payer MEDICARE | LOC: M PLAIMG 14:56 | PROVIDERS: ATTEND Physician Assistant | DX: M25.512 Pain in left shoulder (principal); M79.622 Pain in left upper arm; W19.XXXA Unspecified fall, initial encounter; Y92.9 Unspecified place or not applicable; Y93.9 Activity, unspecified; Y99.9 Unspecified external cause status ==

== ENCOUNTER → 2022-11-09 | Outpatient (CLI) | payer MEDICARE ==
[2022-11-09 17:18] LABS: HEMATOCRIT 36.8 % (36.0-47.0); HEMOGLOBIN 11.4 g/dl (12.0-15.5); MEAN CORPUSCULAR HEMOGLOBIN 31.1 pg (27.0-33.0); MEAN CORPUSCULAR VOLUME 100.5 fl (80.0-96.0); PLATELET COUNT, AUTOMATED 324 10^3/uL (150-450); RED BLOOD COUNT 3.66 10^6/uL (4.00-5.40); WHITE BLOOD COUNT 9.1 10^3/uL (4.0-10.0)
[2022-11-09 17:40] LABS: ALBUMIN 3.3 G/DL (3.2-5.2); ALKALINE PHOSPHATASE 277 U/L (46-116); ALT/SGPT 38 U/L (7.0-40); AST/SGOT 14 U/L (<34); BILIRUBIN,TOTAL 0.5 MG/DL (0.3-1.2); BLOOD UREA NITROGEN 16 MG/DL (9-23); CALCIUM LEVEL 9.1 MG/DL (8.3-10.6); CARBON DIOXIDE LEVEL 28 MMOL/L (20-31); CHLORIDE LEVEL 107 MMOL/L (98-107); CREATININE FOR GFR 0.65 MG/DL (0.55-1.30); GLOMERULAR FILTRATION RATE > 60.0 (>32); GLUCOSE, FASTING 86 MG/DL (74-106); POTASSIUM SERUM 3.7 MMOL/L (3.5-5.1); SODIUM LEVEL 144 MMOL/L (136-145); TOTAL PROTEIN 6.3 G/DL (5.7-8.2)
== END ==
LOC: M PLALAB 14:37
PROVIDERS: ATTEND Nurse Practitioner Adult Health
DX: R63.6 Underweight (principal)

== ENCOUNTER → 2023-06-05 | Outpatient (CLI) | payer MEDICARE | LOC: M RAD 14:54 | PROVIDERS: ATTEND Internal Medicine Pulmonary Disease | DX: R91.8 Other nonspecific abnormal finding of lung field (principal) ==

== ENCOUNTER → 2023-11-30 | Outpatient (CLI) | payer MEDICARE ==
[2023-11-30 15:37] LABS: HEMATOCRIT 40.9 % (36.0-47.0); HEMOGLOBIN 13.1 g/dl (12.0-15.5); MEAN CORPUSCULAR HEMOGLOBIN 33.1 pg (27.0-33.0); MEAN CORPUSCULAR VOLUME 103.3 fl (80.0-96.0); PLATELET COUNT, AUTOMATED 331 10^3/uL (150-450); RED BLOOD COUNT 3.96 10^6/uL (4.00-5.40)
[2023-11-30 16:25] LABS: ALBUMIN 3.2 G/DL (3.2-5.2); ALKALINE PHOSPHATASE 1204 U/L (46-116); ALT/SGPT 229 U/L (7.0-40); AST/SGOT 289 U/L (<34); BILIRUBIN,TOTAL 3.7 MG/DL (0.3-1.2); BLOOD UREA NITROGEN 20 MG/DL (9-23); CARBON DIOXIDE LEVEL 25 MMOL/L (20-31); CHLORIDE LEVEL 104 MMOL/L (98-107); CREATININE FOR GFR 0.79 MG/DL (0.55-1.30); FERRITIN 609.3 NG/ML (7.3-270.7); GLOMERULAR FILTRATION RATE > 60.0 (>32); GLUCOSE, FASTING 64 MG/DL (74-106); POTASSIUM SERUM 4.2 MMOL/L (3.5-5.1); SODIUM LEVEL 138 MMOL/L (136-145); THYROID STIMULATING HORMONE 1.093 uIU/ML (0.55-4.78); TOTAL 25(OH) VITAMIN D 32.9 NG/ML (20.0-100.0); TOTAL PROTEIN 6.4 G/DL (5.7-8.2)
== END ==
LOC: M PLALAB 14:31
PROVIDERS: ATTEND Nurse Practitioner Adult Health
DX: R55 Syncope and collapse (principal); R63.6 Underweight; M81.0 Age-related osteoporosis without current pathological fracture; Z79.899 Other long term (current) drug therapy; Z86.39 Personal history of other endocrine, nutritional and metabolic disease

== ENCOUNTER → 2023-12-02 | Outpatient (REF) | payer MEDICARE | LOC: M SFHCPLAZ 13:07 | PROVIDERS: ATTEND Nurse Practitioner Adult Health | DX: Z53.20 Procedure and treatment not carried out because of patient's decision for unspecified reasons (principal) ==

== ENCOUNTER → 2023-12-05 | Outpatient (CLI) | payer MEDICARE ==
[~2023-12-05] MED LIST changes: +GASTROGRAFIN SOLUTION 30ML As Ordered ONE; +ISOVUE-370 76% 100ML VIAL As Ordered ONE
== END ==
LOC: M RAD 10:24
PROVIDERS: ATTEND Nurse Practitioner Adult Health
DX: R74.8 Abnormal levels of other serum enzymes (principal); K83.8 Other specified diseases of biliary tract; N28.1 Cyst of kidney, acquired
CPT/HCPCS: 74177; Q9963; Q9967

== ENCOUNTER → 2023-12-06 | Outpatient (CLI) | payer MEDICARE ==
[~2023-12-06] MED LIST changes: -GASTROGRAFIN SOLUTION 30ML As Ordered ONE; -ISOVUE-370 76% 100ML VIAL As Ordered ONE
== END ==
LOC: M RAD 16:23
PROVIDERS: ATTEND Nurse Practitioner Adult Health
DX: K83.1 Obstruction of bile duct (principal); R74.8 Abnormal levels of other serum enzymes

== ENCOUNTER → 2024-01-24 | Outpatient (CLI) | payer MEDICARE ==
[2024-01-24 15:40] LABS: BASO % 0.6 % (0.0-1.0); EOS # 0.2 10^3/uL (0.0-0.5); EOS % 2.3 % (0.0-3.0); HEMATOCRIT 31.8 % (36.0-47.0); HEMOGLOBIN 10.3 g/dl (12.0-15.5); LYMPH # 0.8 10^3/uL (1.5-5.0); LYMPH % 12.4 % (24.0-44.0); MEAN CORPUSCULAR HGB CONC 32.4 g/dl (32.0-36.5); MEAN CORPUSCULAR VOLUME 101.9 fl (80.0-96.0); MONO # 0.3 10^3/uL (0.0-0.8); MONO % 5.1 % (2.0-8.0); NEUTROPHILS # 5.1 10^3/uL (1.5-8.5); PLATELET COUNT, AUTOMATED 259 10^3/uL (150-450); RED BLOOD COUNT 3.12 10^6/uL (4.00-5.40); WHITE BLOOD COUNT 6.5 10^3/uL (4.0-10.0)
[2024-01-24 17:07] LABS: ALKALINE PHOSPHATASE 284 U/L (46-116); ALT/SGPT 22 U/L (7.0-40); AST/SGOT 19 U/L (<34); BILIRUBIN,TOTAL 0.5 MG/DL (0.3-1.2); BLOOD UREA NITROGEN 12 MG/DL (9-23); CA19-9 TUMOR MARKER,CARBOHYDRA 10.5 U/ML (<35.0); CALCIUM LEVEL 8.8 MG/DL (8.3-10.6); CARBON DIOXIDE LEVEL 27 MMOL/L (20-31); CHLORIDE LEVEL 107 MMOL/L (98-107); CREATININE FOR GFR 0.84 MG/DL (0.55-1.30); GLOMERULAR FILTRATION RATE > 60.0 (>32); GLUCOSE, FASTING 75 MG/DL (74-106); POTASSIUM SERUM 3.8 MMOL/L (3.5-5.1); SODIUM LEVEL 142 MMOL/L (136-145); TOTAL 25(OH) VITAMIN D 31.9 NG/ML (20.0-100.0); TOTAL PROTEIN 6.1 G/DL (5.7-8.2); VITAMIN B12 LEVEL 487 PG/ML (211-911)
[2024-01-31 16:12] LABS: AFP TUMOR TOTAL 1.2 ng/mL (0.0-8.7); VITAMIN A, RETINOL LEVEL 25.4 ug/dL (22.0-69.5); VITAMIN B6,PYRIDOXAL PHOSPHATE 2.5 ug/L (3.4-65.2)
== END ==
LOC: M PLALAB 11:43
PROVIDERS: ATTEND Physician Assistant Medical
DX: K83.1 Obstruction of bile duct (principal); R63.6 Underweight; R60.0 Localized edema; R74.8 Abnormal levels of other serum enzymes; Z79.899 Other long term (current) drug therapy

== ENCOUNTER → 2024-02-22 | Outpatient (CLI) | payer MEDICARE ==
[2024-02-22 15:04] LABS: ALBUMIN 2.9 G/DL (3.2-5.2); BILIRUBIN,DIRECT 0.2 MG/DL (<0.4); BILIRUBIN,TOTAL 0.4 MG/DL (0.3-1.2)
== END ==
LOC: M PLALAB 09:48
PROVIDERS: ATTEND Internal Medicine Gastroenterology
DX: K80.50 Calculus of bile duct without cholangitis or cholecystitis without obstruction (principal)

== ENCOUNTER 2024-04-16 19:23 | Inpatient (IN) | payer MEDICARE ==
[~2024-04-16] VITALS: Ht 142.2 cm; Wt 30.0 kg
[2024-04-16 20:02] LABS: BASO % 0.2 % (0.0-1.0); EOS # 0.1 10^3/uL (0.0-0.5); EOS % 0.9 % (0.0-3.0); HEMATOCRIT 41.1 % (36.0-47.0); LYMPH # 0.9 10^3/uL (1.5-5.0); LYMPH % 6.9 % (24.0-44.0); MEAN CORPUSCULAR HEMOGLOBIN 31.5 pg (27.0-33.0); MEAN CORPUSCULAR HGB CONC 31.6 g/dl (32.0-36.5); MEAN CORPUSCULAR VOLUME 99.5 fl (80.0-96.0); MONO # 0.6 10^3/uL (0.0-0.8); MONO % 4.4 % (2.0-8.0); NEUTROPHILS % 86.7 % (36.0-66.0); PLATELET COUNT, AUTOMATED 370 10^3/uL (150-450); RED BLOOD COUNT 4.13 10^6/uL (4.00-5.40); WHITE BLOOD COUNT 12.6 10^3/uL (4.0-10.0)
[2024-04-16 20:22] LABS: BLOOD UREA NITROGEN 31 MG/DL (9-23); CALCIUM LEVEL 9.5 MG/DL (8.3-10.6); CARBON DIOXIDE LEVEL 14 MMOL/L (20-31); CHLORIDE LEVEL 116 MMOL/L (98-107); CK-MB VALUE MASS 2.1 NG/ML (<3.6); CPK CREATINE PHOSPHOKINASE 64 U/L (34-145); CREATININE FOR GFR 0.83 MG/DL (0.55-1.30); GLOMERULAR FILTRATION RATE > 60.0 (>32); GLUCOSE, FASTING 109 MG/DL (74-106); MB/CK RELATIVE INDEX 3.28 (< OR =4); POTASSIUM SERUM 5.5 MMOL/L (3.5-5.1); SODIUM LEVEL 142 MMOL/L (136-145)
[2024-04-16] MEDS: NS 500 ML IV ONE (21:04)
[2024-04-17] MEDS ORDERED: ONDANSETRON 4MG 2ML VIAL IV PRN (01:20)
[2024-04-17] MEDS ORDERED: MOM 30ML SUSPENSION UDC PO PRN (01:20)
[2024-04-17] MEDS ORDERED: MAALOX 30 ML SUSP *UDC PO PRN (01:20)
[2024-04-17] MEDS: cefTRIAXone SOD 1 GM in D5W MINI-BAG PLUS 50 ML IV ONE (01:50)
[2024-04-17] MEDS ORDERED: VITA100093 PO (01:58)
[2024-04-17] MEDS ORDERED: LOPE2TAB12 PO (01:58)
[2024-04-17] MEDS ORDERED: C 50TAB PO (01:58)
[2024-04-17] MEDS ORDERED: ACET-897 PO (01:58)
[2024-04-17] MEDS ORDERED: HOME MED LIST COMPLETE! XX SCH (02:00)
[2024-04-17] MEDS ORDERED: ALBU2.5V10 INH (02:00)
[2024-04-17] MEDS: NS 1,000 ML IV SCH (02:08)
[2024-04-17 02:24] LABS: ALBUMIN 3.4 G/DL (3.2-5.2); BILIRUBIN,DIRECT 0.2 MG/DL (<0.4); BILIRUBIN,TOTAL 0.4 MG/DL (0.3-1.2); MAGNESIUM LEVEL 1.8 MG/DL (1.8-2.4); POTASSIUM SERUM 3.9 MMOL/L (3.5-5.1); TOTAL PROTEIN 6.6 G/DL (5.7-8.2)
[2024-04-17 02:50] VITALS: BP 164/65; TEMP 98.4; O2SAT 97
[2024-04-17] MEDS: cefTRIAXone SOD 1 GM in D5W MINI-BAG PLUS 50 ML IV SCH (03:56)
[2024-04-17] MEDS: ACETAMINOPHEN TAB 650MG DOSE (2X325MG) PO PRN (04:01)
[2024-04-17 06:24] LABS: HEMATOCRIT 35.9 % (36.0-47.0); HEMOGLOBIN 11.4 g/dl (12.0-15.5); MEAN CORPUSCULAR HEMOGLOBIN 30.6 pg (27.0-33.0); MEAN CORPUSCULAR HGB CONC 31.8 g/dl (32.0-36.5); MEAN CORPUSCULAR VOLUME 96.2 fl (80.0-96.0); PLATELET COUNT, AUTOMATED 324 10^3/uL (150-450); RED BLOOD COUNT 3.73 10^6/uL (4.00-5.40); WHITE BLOOD COUNT 11.7 10^3/uL (4.0-10.0)
[2024-04-17 06:57] LABS: ALBUMIN 2.9 G/DL (3.2-5.2); ALKALINE PHOSPHATASE 104 U/L (46-116); ALT/SGPT < 9 U/L (7.0-40); AST/SGOT < 8 U/L (<34); BILIRUBIN,TOTAL 0.2 MG/DL (0.3-1.2); BLOOD UREA NITROGEN 27 MG/DL (9-23); CARBON DIOXIDE LEVEL 17 MMOL/L (20-31); CHLORIDE LEVEL 120 MMOL/L (98-107); CREATININE FOR GFR 0.68 MG/DL (0.55-1.30); GLOMERULAR FILTRATION RATE > 60.0 (>32); GLUCOSE, FASTING 137 MG/DL (74-106); MAGNESIUM LEVEL 1.7 MG/DL (1.8-2.4); POTASSIUM SERUM 3.5 MMOL/L (3.5-5.1); SODIUM LEVEL 147 MMOL/L (136-145); TOTAL PROTEIN 5.9 G/DL (5.7-8.2)
[2024-04-17] MEDS: HEPARIN SOD (PORCINE) 5000UNITS/ML 1ML VIAL/SYRINGE SC SCH (09:14)
[2024-04-17 12:12] VITALS: BP 133/52; TEMP 99; O2SAT 99
[2024-04-17] MEDS ORDERED: LOPERAMIDE 2 MG CAPLET PO PRN (17:00)
[2024-04-17] MEDS ORDERED: ALBUTEROL SULFATE 2.5MG/0.5ML INH NEB SOLN INH PRN (17:00)
[2024-04-17] MEDS: MAG SULF 1GM/100ML (MAG RUN) 1 GM in IV 1 EA IV SCH (17:40)
[2024-04-17] MEDS: LACTOBACILLUS ACIDOPHILUS CAP (BACID) PO SCH (17:40)
[2024-04-17 20:59] VITALS: BP 148/64; TEMP 96.6; O2SAT 99
[2024-04-18 04:41] VITALS: BP 138/52; TEMP 98.8; O2SAT 98
[2024-04-18 08:28] LABS: BASO % 0.1 % (0.0-1.0); EOS # 0.2 10^3/uL (0.0-0.5); EOS % 1.7 % (0.0-3.0); HEMATOCRIT 35.6 % (36.0-47.0); LYMPH % 10.9 % (24.0-44.0); MEAN CORPUSCULAR HEMOGLOBIN 30.9 pg (27.0-33.0); MEAN CORPUSCULAR HGB CONC 30.9 g/dl (32.0-36.5); MONO # 0.4 10^3/uL (0.0-0.8); MONO % 4.9 % (2.0-8.0); NEUTROPHILS # 7.1 10^3/uL (1.5-8.5); NEUTROPHILS % 81.7 % (36.0-66.0); PLATELET COUNT, AUTOMATED 282 10^3/uL (150-450); RED BLOOD COUNT 3.56 10^6/uL (4.00-5.40); WHITE BLOOD COUNT 8.7 10^3/uL (4.0-10.0)
[2024-04-18 09:00] LABS: BLOOD UREA NITROGEN 16 MG/DL (9-23); CARBON DIOXIDE LEVEL 21 MMOL/L (20-31); CHLORIDE LEVEL 118 MMOL/L (98-107); CREATININE FOR GFR 0.61 MG/DL (0.55-1.30); GLOMERULAR FILTRATION RATE > 60.0 (>32); GLUCOSE, FASTING 98 MG/DL (74-106); MAGNESIUM LEVEL 2.3 MG/DL (1.8-2.4); POTASSIUM SERUM 3.4 MMOL/L (3.5-5.1); SODIUM LEVEL 148 MMOL/L (136-145)
[2024-04-18] MEDS: ASCORBIC ACID 500 MG TAB PO SCH (09:06)
[2024-04-18] MEDS: VITAMIN D 1,000 INTERNATIONAL UNITS TABLET PO SCH (09:06)
[2024-04-18] MEDS: KCL 10MEQ/100ML SWI (KRUN) 10 MEQ in IV 1 EA IV SCH (10:52)
[2024-04-18] MEDS: D5W/0.9% SODIUM CHLORIDE 1,000 ML IV SCH (10:52)
[2024-04-18 12:23] VITALS: BP 137/53; TEMP 98.4; O2SAT 99
[2024-04-18 15:57] LABS: BLOOD UREA NITROGEN 16 MG/DL (9-23); CALCIUM LEVEL 8.5 MG/DL (8.3-10.6); CARBON DIOXIDE LEVEL 24 MMOL/L (20-31); CHLORIDE LEVEL 116 MMOL/L (98-107); CREATININE FOR GFR 0.57 MG/DL (0.55-1.30); GLOMERULAR FILTRATION RATE > 60.0 (>32); GLUCOSE, FASTING 87 MG/DL (74-106); POTASSIUM SERUM 4.3 MMOL/L (3.5-5.1); SODIUM LEVEL 145 MMOL/L (136-145)
[2024-04-18 20:08] VITALS: BP 147/64; TEMP 99; O2SAT 96
[2024-04-19 03:29] VITALS: BP 152/65; TEMP 98.8; O2SAT 97
[2024-04-19 06:10] LABS: BASO % 0.1 % (0.0-1.0); EOS # 0.2 10^3/uL (0.0-0.5); EOS % 1.6 % (0.0-3.0); HEMATOCRIT 30.2 % (36.0-47.0); HEMOGLOBIN 9.4 g/dl (12.0-15.5); LYMPH # 0.7 10^3/uL (1.5-5.0); LYMPH % 7.4 % (24.0-44.0); MEAN CORPUSCULAR HEMOGLOBIN 31.1 pg (27.0-33.0); MEAN CORPUSCULAR HGB CONC 31.1 g/dl (32.0-36.5); MONO # 0.7 10^3/uL (0.0-0.8); MONO % 7.1 % (2.0-8.0); NEUTROPHILS # 7.9 10^3/uL (1.5-8.5); NEUTROPHILS % 82.6 % (36.0-66.0); PLATELET COUNT, AUTOMATED 231 10^3/uL (150-450); RED BLOOD COUNT 3.02 10^6/uL (4.00-5.40); WHITE BLOOD COUNT 9.5 10^3/uL (4.0-10.0)
[2024-04-19 06:42] LABS: BLOOD UREA NITROGEN 14 MG/DL (9-23); CALCIUM LEVEL 8.6 MG/DL (8.3-10.6); CARBON DIOXIDE LEVEL 24 MMOL/L (20-31); CHLORIDE LEVEL 115 MMOL/L (98-107); CREATININE FOR GFR 0.47 MG/DL (0.55-1.30); GLOMERULAR FILTRATION RATE > 60.0 (>32); GLUCOSE, FASTING 90 MG/DL (74-106); MAGNESIUM LEVEL 1.8 MG/DL (1.8-2.4); POTASSIUM SERUM 4.4 MMOL/L (3.5-5.1); SODIUM LEVEL 143 MMOL/L (136-145)
[2024-04-19 12:23] VITALS: BP 159/64; TEMP 99.3; O2SAT 98
[2024-04-19 15:36] VITALS: TEMP 101.6
[2024-04-19 21:21] VITALS: BP 151/61; TEMP 97.1; O2SAT 97
[2024-04-20 05:08] VITALS: BP 134/58; TEMP 97.2; O2SAT 96
[2024-04-20 07:01] LABS: BASO % 0.3 % (0.0-1.0); EOS % 0.7 % (0.0-3.0); HEMATOCRIT 29.4 % (36.0-47.0); HEMOGLOBIN 9.2 g/dl (12.0-15.5); LYMPH # 0.4 10^3/uL (1.5-5.0); LYMPH % 6.3 % (24.0-44.0); MEAN CORPUSCULAR HEMOGLOBIN 30.8 pg (27.0-33.0); MEAN CORPUSCULAR HGB CONC 31.3 g/dl (32.0-36.5); MEAN CORPUSCULAR VOLUME 98.3 fl (80.0-96.0); MONO # 0.7 10^3/uL (0.0-0.8); MONO % 12.1 % (2.0-8.0); NEUTROPHILS # 4.4 10^3/uL (1.5-8.5); NEUTROPHILS % 75.7 % (36.0-66.0); PLATELET COUNT, AUTOMATED 206 10^3/uL (150-450); RED BLOOD COUNT 2.99 10^6/uL (4.00-5.40); WHITE BLOOD COUNT 5.9 10^3/uL (4.0-10.0)
[2024-04-20 07:15] LABS: BLOOD UREA NITROGEN 9 MG/DL (9-23); CALCIUM LEVEL 8.4 MG/DL (8.3-10.6); CARBON DIOXIDE LEVEL 29 MMOL/L (20-31); CHLORIDE LEVEL 106 MMOL/L (98-107); CREATININE FOR GFR 0.45 MG/DL (0.55-1.30); GLOMERULAR FILTRATION RATE > 60.0 (>32); GLUCOSE, FASTING 92 MG/DL (74-106); MAGNESIUM LEVEL 1.6 MG/DL (1.8-2.4); SODIUM LEVEL 137 MMOL/L (136-145)
[2024-04-20] MEDS: MAGNESIUM OXIDE 400MG TAB (MAG-OX) PO SCH (08:42)
[2024-04-20] MEDS: MAG SULF 1GM/100ML (MAG RUN) 1 GM in IV 1 EA IV SCH (08:46)
[2024-04-20 13:02] VITALS: BP 145/54; TEMP 100.6; O2SAT 96
[2024-04-20 15:12] VITALS: TEMP 100.2
[2024-04-20 16:48] VITALS: TEMP 99.5
[2024-04-20] MEDS ORDERED: CEFEPIME HCL 2 GM in D5W MINI-BAG PLUS 50 ML IV SCH (16:55)
[2024-04-20] MEDS: CEFEPIME HCL 1 GM in D5W MINI-BAG PLUS 50 ML IV SCH (17:15)
[2024-04-20 20:50] VITALS: BP 183/87; TEMP 99.9; O2SAT 91
[2024-04-20 23:37] VITALS: BP 145/66
[2024-04-21 05:04] VITALS: BP 127/73; TEMP 98.2; O2SAT 94
[2024-04-21 06:59] LABS: BASO % 0.7 % (0.0-1.0); EOS % 0.3 % (0.0-3.0); HEMOGLOBIN 10.8 g/dl (12.0-15.5); LYMPH # 0.6 10^3/uL (1.5-5.0); LYMPH % 10.2 % (24.0-44.0); MEAN CORPUSCULAR HEMOGLOBIN 30.9 pg (27.0-33.0); MEAN CORPUSCULAR HGB CONC 31.8 g/dl (32.0-36.5); MEAN CORPUSCULAR VOLUME 97.4 fl (80.0-96.0); MONO # 0.9 10^3/uL (0.0-0.8); MONO % 14.9 % (2.0-8.0); NEUTROPHILS # 4.3 10^3/uL (1.5-8.5); PLATELET COUNT, AUTOMATED 224 10^3/uL (150-450); RED BLOOD COUNT 3.49 10^6/uL (4.00-5.40); WHITE BLOOD COUNT 6.1 10^3/uL (4.0-10.0)
[2024-04-21 07:07] LABS: BLOOD UREA NITROGEN 13 MG/DL (9-23); CALCIUM LEVEL 8.7 MG/DL (8.3-10.6); CARBON DIOXIDE LEVEL 31 MMOL/L (20-31); CHLORIDE LEVEL 101 MMOL/L (98-107); CREATININE FOR GFR 0.43 MG/DL (0.55-1.30); GLOMERULAR FILTRATION RATE > 60.0 (>32); GLUCOSE, FASTING 97 MG/DL (74-106); MAGNESIUM LEVEL 2.1 MG/DL (1.8-2.4); POTASSIUM SERUM 4.3 MMOL/L (3.5-5.1); SODIUM LEVEL 136 MMOL/L (136-145)
[2024-04-21 12:00] VITALS: BP 129/72; TEMP 98.6; O2SAT 95
[2024-04-21 13:37] VITALS: BP 127/67; TEMP 98.6; O2SAT 92
[2024-04-21 20:00] VITALS: BP 143/66; TEMP 98.8; O2SAT 92
[2024-04-22 04:00] VITALS: BP 158/68; TEMP 99.5; O2SAT 91
[2024-04-22 06:44] LABS: BASO % 0.3 % (0.0-1.0); EOS # 0.1 10^3/uL (0.0-0.5); EOS % 0.9 % (0.0-3.0); HEMATOCRIT 35.5 % (36.0-47.0); HEMOGLOBIN 11.3 g/dl (12.0-15.5); LYMPH # 0.8 10^3/uL (1.5-5.0); LYMPH % 12.9 % (24.0-44.0); MEAN CORPUSCULAR HEMOGLOBIN 30.8 pg (27.0-33.0); MEAN CORPUSCULAR HGB CONC 31.8 g/dl (32.0-36.5); MEAN CORPUSCULAR VOLUME 96.7 fl (80.0-96.0); MONO # 0.9 10^3/uL (0.0-0.8); MONO % 14.1 % (2.0-8.0); NEUTROPHILS # 4.5 10^3/uL (1.5-8.5); NEUTROPHILS % 70.4 % (36.0-66.0); PLATELET COUNT, AUTOMATED 224 10^3/uL (150-450); RED BLOOD COUNT 3.67 10^6/uL (4.00-5.40); WHITE BLOOD COUNT 6.4 10^3/uL (4.0-10.0)
[2024-04-22 07:12] LABS: BLOOD UREA NITROGEN 16 MG/DL (9-23); CALCIUM LEVEL 9.1 MG/DL (8.3-10.6); CARBON DIOXIDE LEVEL 33 MMOL/L (20-31); CHLORIDE LEVEL 96 MMOL/L (98-107); CREATININE FOR GFR 0.47 MG/DL (0.55-1.30); GLOMERULAR FILTRATION RATE > 60.0 (>32); GLUCOSE, FASTING 87 MG/DL (74-106); MAGNESIUM LEVEL 1.9 MG/DL (1.8-2.4); POTASSIUM SERUM 5.1 MMOL/L (3.5-5.1); SODIUM LEVEL 131 MMOL/L (136-145)
[2024-04-22 12:00] VITALS: BP 119/53; TEMP 98.2; O2SAT 94
[2024-04-22 21:11] VITALS: BP 161/73; TEMP 99; O2SAT 92
[2024-04-22 22:15] VITALS: BP 150/62
[2024-04-23 04:55] VITALS: BP 124/74; TEMP 98.8; O2SAT 93
[2024-04-23 06:47] LABS: BASO % 0.4 % (0.0-1.0); EOS % 0.5 % (0.0-3.0); HEMATOCRIT 34.2 % (36.0-47.0); LYMPH # 0.8 10^3/uL (1.5-5.0); LYMPH % 14.2 % (24.0-44.0); MEAN CORPUSCULAR HGB CONC 32.2 g/dl (32.0-36.5); MEAN CORPUSCULAR VOLUME 96.3 fl (80.0-96.0); MONO # 0.8 10^3/uL (0.0-0.8); MONO % 14.7 % (2.0-8.0); NEUTROPHILS # 3.9 10^3/uL (1.5-8.5); PLATELET COUNT, AUTOMATED 213 10^3/uL (150-450); RED BLOOD COUNT 3.55 10^6/uL (4.00-5.40); WHITE BLOOD COUNT 5.7 10^3/uL (4.0-10.0)
[2024-04-23 07:21] LABS: BLOOD UREA NITROGEN 23 MG/DL (9-23); CALCIUM LEVEL 9.3 MG/DL (8.3-10.6); CARBON DIOXIDE LEVEL 34 MMOL/L (20-31); CHLORIDE LEVEL 98 MMOL/L (98-107); CREATININE FOR GFR 0.52 MG/DL (0.55-1.30); GLOMERULAR FILTRATION RATE > 60.0 (>32); GLUCOSE, FASTING 99 MG/DL (74-106); MAGNESIUM LEVEL 2.1 MG/DL (1.8-2.4); POTASSIUM SERUM 5.1 MMOL/L (3.5-5.1); SODIUM LEVEL 135 MMOL/L (136-145)
[2024-04-23 12:00] VITALS: BP 142/68; TEMP 98.6; O2SAT 92
[2024-04-23 20:20] VITALS: BP 137/69; TEMP 99; O2SAT 93
[2024-04-24 04:28] VITALS: BP 140/69; TEMP 99
[2024-04-24 07:15] LABS: BASO % 0.2 % (0.0-1.0); EOS % 0.5 % (0.0-3.0); HEMATOCRIT 34.6 % (36.0-47.0); LYMPH # 0.8 10^3/uL (1.5-5.0); LYMPH % 12.9 % (24.0-44.0); MEAN CORPUSCULAR HEMOGLOBIN 30.6 pg (27.0-33.0); MEAN CORPUSCULAR HGB CONC 31.8 g/dl (32.0-36.5); MEAN CORPUSCULAR VOLUME 96.4 fl (80.0-96.0); MONO # 0.7 10^3/uL (0.0-0.8); MONO % 10.6 % (2.0-8.0); NEUTROPHILS # 4.6 10^3/uL (1.5-8.5); PLATELET COUNT, AUTOMATED 243 10^3/uL (150-450); RED BLOOD COUNT 3.59 10^6/uL (4.00-5.40); WHITE BLOOD COUNT 6.1 10^3/uL (4.0-10.0)
[2024-04-24 07:37] LABS: BLOOD UREA NITROGEN 25 MG/DL (9-23); CALCIUM LEVEL 9.6 MG/DL (8.3-10.6); CARBON DIOXIDE LEVEL 34 MMOL/L (20-31); CHLORIDE LEVEL 95 MMOL/L (98-107); CREATININE FOR GFR 0.65 MG/DL (0.55-1.30); GLOMERULAR FILTRATION RATE > 60.0 (>32); GLUCOSE, FASTING 100 MG/DL (74-106); MAGNESIUM LEVEL 2.1 MG/DL (1.8-2.4); POTASSIUM SERUM 5.7 MMOL/L (3.5-5.1); SODIUM LEVEL 132 MMOL/L (136-145)
[2024-04-24] MEDS: PATIROMER SORBITEX CALCIUM 8.4 GM POWDER PACKET (VELTASSA) PO ONE (08:42)
[2024-04-24 12:00] VITALS: BP 127/55; TEMP 99.7; O2SAT 95
[2024-04-24 12:23] LABS: OSMOLALITY SERUM 290 MOSM/KG (280-301)
[2024-04-24 13:59] LABS: ABG BASE EXCESS 7.2 (-2.0-2.0); ABG HCO3 31.5 MMOL/L (22.0-26.0); ABG O2 SATURATION 94.9 % (95.0-99.0); ABG PARTIAL PRESSURE CO2 43.6 mmHg (35.0-45.0); ABG PARTIAL PRESSURE O2 75.7 mmHg (75.0-100.0); ABG TOTAL CO2 32.9 MMOL/L (23.0-31.0); ABG pH (ARTERIAL) 7.477 UNITS (7.350-7.450)
[2024-04-24 20:59] VITALS: BP 144/64; TEMP 99.1; O2SAT 94
[2024-04-25 05:53] VITALS: BP 140/60; TEMP 98.6; O2SAT 93
[2024-04-25 06:15] LABS: BASO % 0.2 % (0.0-1.0); EOS # 0.1 10^3/uL (0.0-0.5); EOS % 0.9 % (0.0-3.0); HEMOGLOBIN 10.4 g/dl (12.0-15.5); LYMPH % 17.6 % (24.0-44.0); MEAN CORPUSCULAR HEMOGLOBIN 30.5 pg (27.0-33.0); MEAN CORPUSCULAR HGB CONC 31.5 g/dl (32.0-36.5); MEAN CORPUSCULAR VOLUME 96.8 fl (80.0-96.0); MONO # 0.6 10^3/uL (0.0-0.8); MONO % 10.8 % (2.0-8.0); NEUTROPHILS # 3.9 10^3/uL (1.5-8.5); NEUTROPHILS % 68.9 % (36.0-66.0); PLATELET COUNT, AUTOMATED 244 10^3/uL (150-450); RED BLOOD COUNT 3.41 10^6/uL (4.00-5.40); WHITE BLOOD COUNT 5.6 10^3/uL (4.0-10.0)
[2024-04-25 06:32] LABS: BLOOD UREA NITROGEN 28 MG/DL (9-23); CALCIUM LEVEL 9.2 MG/DL (8.3-10.6); CARBON DIOXIDE LEVEL 33 MMOL/L (20-31); CHLORIDE LEVEL 99 MMOL/L (98-107); CREATININE FOR GFR 0.64 MG/DL (0.55-1.30); GLOMERULAR FILTRATION RATE > 60.0 (>32); GLUCOSE, FASTING 92 MG/DL (74-106); MAGNESIUM LEVEL 2.1 MG/DL (1.8-2.4); SODIUM LEVEL 133 MMOL/L (136-145)
[2024-04-25 12:00] VITALS: BP 120/54; TEMP 99; O2SAT 94
[2024-04-25 20:25] VITALS: BP 99/54; TEMP 99; O2SAT 92
[2024-04-26 05:37] VITALS: BP 132/57; TEMP 98.8; O2SAT 94
[2024-04-26 06:25] LABS: BASO % 0.3 % (0.0-1.0); EOS # 0.1 10^3/uL (0.0-0.5); EOS % 0.8 % (0.0-3.0); HEMATOCRIT 33.4 % (36.0-47.0); HEMOGLOBIN 10.3 g/dl (12.0-15.5); LYMPH # 1.3 10^3/uL (1.5-5.0); LYMPH % 20.9 % (24.0-44.0); MEAN CORPUSCULAR HGB CONC 30.8 g/dl (32.0-36.5); MEAN CORPUSCULAR VOLUME 97.4 fl (80.0-96.0); MONO # 0.5 10^3/uL (0.0-0.8); MONO % 8.8 % (2.0-8.0); NEUTROPHILS # 4.2 10^3/uL (1.5-8.5); NEUTROPHILS % 67.7 % (36.0-66.0); PLATELET COUNT, AUTOMATED 266 10^3/uL (150-450); RED BLOOD COUNT 3.43 10^6/uL (4.00-5.40); WHITE BLOOD COUNT 6.2 10^3/uL (4.0-10.0)
[2024-04-26 06:55] LABS: BLOOD UREA NITROGEN 29 MG/DL (9-23); CALCIUM LEVEL 9.2 MG/DL (8.3-10.6); CARBON DIOXIDE LEVEL 31 MMOL/L (20-31); CHLORIDE LEVEL 99 MMOL/L (98-107); CREATININE FOR GFR 0.72 MG/DL (0.55-1.30); GLOMERULAR FILTRATION RATE > 60.0 (>32); GLUCOSE, FASTING 96 MG/DL (74-106); POTASSIUM SERUM 5.1 MMOL/L (3.5-5.1); SODIUM LEVEL 132 MMOL/L (136-145)
[2024-04-26] MEDS ORDERED: ONDANSETRON 4MG ORAL DISINTEGRATING TAB PO PRN (10:25)
[2024-04-26] MEDS ORDERED: LORazepam 1 MG TAB PO PRN (10:25)
[2024-04-26 21:12] VITALS: BP 114/57; TEMP 99; O2SAT 92
[2024-04-26] MEDS: MORPHINE 10MG/0.5ML ORAL CONCENTRATE SOLUTION U/D SL PRN (21:16)
[2024-04-29] MEDS: MORPHINE 10MG/0.5ML ORAL CONCENTRATE SOLUTION U/D SL SCH (12:58)
== END 2024-04-30 05:50 | disposition expired | DRG 689 ==
LOC: M ED 19:23 → M ED INP 04-17 00:51 → M MS5PR 04-17 03:05
PROVIDERS: ADMIT Preventive Medicine Undersea and Hyperbaric Medicine; ATTEND Hospitalist
DX: N39.0 Urinary tract infection, site not specified (principal); E43 Unspecified severe protein-calorie malnutrition; G92.8 Other toxic encephalopathy; U07.1 COVID-19; Z68.1 Body mass index [BMI] 19.9 or less, adult; E87.0 Hyperosmolality and hypernatremia; E87.1 Hypo-osmolality and hyponatremia; E87.4 Mixed disorder of acid-base balance; R63.6 Underweight; B96.5 Pseudomonas (aeruginosa) (mallei) (pseudomallei) as the cause of diseases classified elsewhere; E87.5 Hyperkalemia; R13.10 Dysphagia, unspecified; Z88.0 Allergy status to penicillin; Z88.2 Allergy status to sulfonamides; Z88.8 Allergy status to other drugs, medicaments and biological substances; Z79.899 Other long term (current) drug therapy; M81.0 Age-related osteoporosis without current pathological fracture; Z87.891 Personal history of nicotine dependence; R91.1 Solitary pulmonary nodule; K57.90 Diverticulosis of intestine, part unspecified, without perforation or abscess without bleeding; Z98.41 Cataract extraction status, right eye; Z98.42 Cataract extraction status, left eye; Z51.5 Encounter for palliative care